=== PATIENT | female | born 1945 | race American Indian/Alaskan Native ===

== ENCOUNTER 2018-03-19 15:04 | Emergency (ER) | payer MEDICARE ==
[2018-03-19] MEDS ORDERED: NORCO 5/325 PO ONE (15:34)
--- NOTE | 2018-03-19 15:38 | Emergency Department Report ---
ED Extremity Problem HPI - General Chief complaint: Extremity Problem,Nontraumatic Stated complaint: SEVERE PAIN ON (R) SIDE / UNABLE TO WALK Time Seen by Provider: 03/19/18 15:28 Source: patient Mode of arrival: Wheelchair Limitations: No Limitations - History of Present Illness Initial comments: Patient is a 72-year-old female who states she works for the [employer] and during the recent Super Bowl preparations patient states she is been walking a lot more. Patient states she was at [employer] yesterday for approximately 8 hours walking. Patient states that this morning she woke up with intense pain in her right hip. Patient states is from the posterior hip radiating to the anterior hip. Patient states it radiates down the leg. She denies any trauma. Patient states any movement of the right hip is very painful. Pain is a 8 out of 10 in severity. Patient denies any fever. - Related Data Previous Rx's Medication Instructions Recorded Last Taken Type HYDROcodone/APAP 5-325 [[place] 1 each PO Q4HR PRN #12 tablet 03/19/18 Unknown Rx 5/325] Ibuprofen [Motrin] 600 mg PO Q8H PRN #20 tablet 03/19/18 Unknown Rx methOCARBAMOL [Robaxin TAB] 500 mg PO Q6H PRN #15 tablet 03/19/18 Unknown Rx Allergies Allergy/AdvReac Type Severity Reaction Status Date / Time No Known Allergies Allergy Unverified 01/02/14 09:38 ED Review of Systems ROS: Stated complaint: SEVERE PAIN ON (R) SIDE / UNABLE TO WALK Other details as noted in HPI Comment: All other systems reviewed and negative ED Past Medical Hx - Past Medical History Previous Medical History?: Yes Hx of Cancer: Yes Additional medical history: brain aneurysm - Surgical History Past Surgical History?: Yes Additional Surgical History: Aneurysm surgery. hip surgery - Social History Smoking Status: Current Every Day Smoker Substance Use Type: None - Medications Home Medications: Home Medications Medication Instructions Recorded Confirmed Last Taken Type HYDROcodone/APAP 5-325 [[place] 1 each PO Q4HR PRN #12 tablet 03/19/18 Unknown Rx 5/325] Ibuprofen [Motrin] 600 mg PO Q8H PRN #20 tablet 03/19/18 Unknown Rx methOCARBAMOL [Robaxin TAB] 500 mg PO Q6H PRN #15 tablet 03/19/18 Unknown Rx ED Physical Exam - General Limitations: No Limitations General appearance: alert, in no apparent distress - Head Head exam: Present: atraumatic, normocephalic - Eye Eye exam: Present: normal appearance - ENT ENT exam: Present: mucous membranes moist - Neck Neck exam: Present: normal inspection - Respiratory Respiratory exam: Present: normal lung sounds bilaterally. Absent: respiratory distress - Cardiovascular Cardiovascular Exam: Present: regular rate, normal rhythm. Absent: systolic murmur, diastolic murmur, rubs, gallop - GI/Abdominal GI/Abdominal exam: Present: soft, normal bowel sounds - Extremities Exam Extremities exam: Present: normal inspection - Expanded Lower Extremity Exam Right Hip exam: Present: full ROM (patient has full range of motion passively.), tenderness. Absent: swelling, abrasion, laceration, ecchymosis, deformity, crepidus, dislocation, erythema, shortening Knee exam: Present: normal inspection, full ROM Lower Leg exam: Present: normal inspection, full ROM - Back Exam Back exam: Present: normal inspection - Neurological Exam Neurological exam: Present: alert, oriented X3 - Psychiatric Psychiatric exam: Present: normal affect, normal mood - Skin Skin exam: Present: warm, dry, intact, normal color. Absent: rash ED Course Vital Signs 03/19/18 03/19/18 15:10 15:44 Temperature 98.5 F Pulse Rate 76 Respiratory 16 18 Rate Blood Pressure 154/74 O2 Sat by Pulse 98 Oximetry ED Medical Decision Making - Radiology Data X-ray of the right hip shows the patient has intact screws into the acetabulum. Patient has some arthritic changes as well. There are no acute fractures. Critical care attestation.: If time is entered above; I have spent that time in minutes in the direct care of this critically ill patient, excluding procedure time. ED Disposition Clinical Impression: Arthralgia of hip Qualifiers: Laterality: right Qualified Code(s): M25.551 - Pain in right hip Disposition: DC- TO HOME OR SELFCARE Is pt being admited?: No Does the pt Need Aspirin: No Condition: Stable Instructions: Arthralgia (ED) Time of Disposition: 16:31
--- NOTE | 2018-03-19 19:23 | XRay Report ---
FINAL REPORT EXAM: XR HIP 2-3V RT HISTORY: pain TECHNIQUE: Frontal view of the pelvis and hips and frog-lateral view right hip Comparison: None FINDINGS: There is retained hardware in the right acetabulum. There is no evidence of fracture or subluxation. The hip joints appear to be maintained. There is degenerative change of the lumbar spine. The soft tissues are unremarkable. IMPRESSION: 1. Retained hardware right acetabulum. 2. No evidence of fracture or subluxation. If further imaging is required, CT may be helpful.
[2018-03-21 12:23] VITALS: BP 150/72
== END 2018-03-19 17:07 | disposition home or self-care (01) ==
LOC: ED 15:04
DX: M25.551 Pain in right hip (principal); F17.200 Nicotine dependence, unspecified, uncomplicated